=== PATIENT | male | born 1975 | race Caucasian/White ===

== ENCOUNTER 2019-05-28 18:10 | Emergency (ER) | payer OTHER ==
[~2019-05-28] VITALS: Ht 182.9 cm; Wt 122.0 kg
[2019-05-28 18:13] VITALS: BP 145/81
[2019-05-28 19:01] LABS: ABSOLUTE BASOPHILS 0.1 thou/uL (0.0-0.2); ABSOLUTE EOSINOPHILS 0.1 thou/uL (0.0-0.7); ABSOLUTE LYMPHOCYTES 1.5 thou/uL (0.8-5.3); ABSOLUTE MONOCYTES 0.3 thou/uL (0.0-1.2); ABSOLUTE NEUTROPHILS 3.1 thou/uL (1.6-8.1); BASOPHILS 1.1 %; HEMATOCRIT 43.7 % (42.0-52.0); LYMPHOCYTES 29.6 %; MCH 30.7 pg (26.0-34.0); MCHC 34.4 g/dL (28.0-37.0); MCV 89.2 fL (80.0-100.0); MONOCYTES 6.8 %; MPV 7.3 fl. (7.2-11.1); NUCLEATED RBCS 0 /100WBC; PLATELET COUNT* 210 thou/uL (150-400); POLYS 61.5 %; RBC 4.89 mil/uL (4.50-6.00); RDW-CV 13.6 % (10.5-14.5)
[2019-05-28 19:11] LABS: CALCIUM 8.6 mg/dL (8.5-10.1)
[2019-05-28 19:19] LABS: ALBUMIN 3.9 g/dL (3.4-5.0); MAGNESIUM 2.1 mg/dL (1.8-2.4); TOTAL BILIRUBIN 0.4 mg/dL (<0.1-1.0); TOTAL PROTEIN 7.6 g/dL (6.4-8.2)
[2019-05-28 21:07] VITALS: BP 131/78
--- NOTE | 2019-05-29 16:27 | EKG ---
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1975 Requested By: Lorelei Velez Order Number: [id number] MD: Jorje Sorto Measurements Intervals [place] Rate: 85 P: WI: QRS: 66 QRSD: 97 T: 22 QT: 379 QTc: 451 Interpretive Statements Atrial fibrillation Compared to ECG 05/30/2014 18:57:03 Sinus rhythm no longer present Left posterior fascicular block no longer present Electronically Signed On 05-29-2019 16:26:33 CDT by Jorje Sorto [email or web address] <ELECTRONICALLY SIGNED> By: Jorje Sorto MD, FACC 05/29/19 1626 1814 1814 Jorje Sorto MD, [facility] /EPI
--- NOTE | 2019-05-29 16:28 | EKG ---
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[employer]: [place] : 1975 Requested By: Jus Chavez Order Number: [id number] MD: Jorje Sorto Measurements Intervals [place] Rate: 65 P: 22 AK: 186 QRS: 33 QRSD: 104 T: 52 QT: 411 QTc: 428 Interpretive Statements Sinus rhythm Compared to ECG 05/30/2014 18:57:03 Left posterior fascicular block no longer present Electronically Signed On 05-29-2019 16:27:00 CDT by Jorje Sorto [email or web address] <ELECTRONICALLY SIGNED> By: Jorje Sorto MD, [facility] 05/29/19 1627 1901 190 Jorje Sorto MD, [facility] /EPI
== END 2019-05-28 21:09 | disposition home or self-care (01) ==
LOC: M.ERS 18:10 → M.TBA-ER 18:50 → M.ERS 18:50
PROVIDERS: Emergency Medicine Emergency Medical Services
DX: I48.91 Unspecified atrial fibrillation (principal)